=== PATIENT | male | born 1950 | race Caucasian/White ===

== ENCOUNTER 2019-09-27 13:16 | Outpatient (CLI) | payer MEDICARE ==
[2019-09-27] MEDS ORDERED: Iopamidol-370 76% 500 ML 1 ML ONE (13:51)
[2019-09-27 14:26] LABS: Estimated GFR-MDRD - POC Greater than 90
--- NOTE | 2019-09-27 17:55 | CT ---
CTA OF THE AORTA AND BILATERAL LOWER EXTREMITY RUNOFF WITH IV CONTRAST AND 3D POSTPROCESSIN09/27/19 HISTORY: Peripheral vascular disease. FINDINGS: Extensive atherosclerotic plaque is seen in the arterial systems of the aorta and the lower section o f the arteries. No aneurysmal dilatation of the abdominal aorta is seen. There is mild stenosis at th e origin of the left renal artery and moderate stenosis at the origin of the right renal artery. Ther e is good flow in the celiac access. There is moderate stenosis of the origin of the SMA. High grade stenosis is seen in the common iliac arteries bilaterally. There is high grade stenosis in the dental intern al iliac arteries. There is high grade stenosis in the external iliac arteries on both sides. There is also long segment occlusion of the superficial femoral arteries on both sides with reconstit ution flow in the distal popliteal arteries through branches of the deep femoral arteries. There is e xtensive atherosclerotic narrowing in the vessels of the legs with triple phase flow demonstrated to the ankles and probably feet on either side. There is severe stenosis in the left common femoral artery. No calcified gallstones are seen. No free air, free fluid or lymphadenopathy is noted in the abdomen or pelvis. There are bilateral renal cysts. There is irregularity of the structures of the liver mcintosh spicious for cirrhosis. No hypervascular liver mass is seen. The pancreas, adrenal glands and spleen are normal. There is a small at containing umbilical hernia. There is colonic diverticulosis. There are degenerative changes in the spine. IMPRESSION: Extensive atherosclerotic disease with multilevel stenosis in the peripheral arteries of the lower ex tremities including long segment occlusion of the superficial femoral arteries bilaterally. POS: ILIA
== END 2019-09-27 13:17 | disposition home or self-care (01) ==
LOC: BICCT 13:16
PROVIDERS: ATTEND Thoracic Surgery (Cardiothoracic Vascular Surgery)
DX: I70.203 Unspecified atherosclerosis of native arteries of extremities, bilateral legs (principal); I77.1 Stricture of artery
CPT/HCPCS: 75635; 82565; Q9967

== ENCOUNTER 2019-10-01 13:30 | Inpatient (IN) | payer MEDICARE ==
[2019-10-02] MEDS ORDERED: Heparin 5,000 UNITS/ML VIAL ONE (06:28)
[2019-10-02] MEDS ORDERED: Protamine Sulfate 50 MG/5 ML VIAL ONE (06:28)
[2019-10-02] MEDS ORDERED: Fentanyl 100 MCG/2 ML VIAL ONE ×2 (06:29→12:26)
[2019-10-02] MEDS ORDERED: Midazolam HCl 2 mg/2 ml Vial ONE (06:29)
[2019-10-02] MEDS ORDERED: Ondansetron HCl/PF 4 MG/2 ML Vial IVP PRN (08:54)
[2019-10-02] MEDS ORDERED: Ondansetron PF 4 MG/2 ML Vial ONE (10:17)
[2019-10-02] MEDS ORDERED: EPHEDRINE 25 MG/5 ML SYRINGE ONE (10:17)
[2019-10-02] MEDS ORDERED: Lidocaine 1% PF 5 ML VIAL ONE (10:17)
[2019-10-02] MEDS ORDERED: PHENYLEPHRINE-NS 100 MCG/ML 10 ML SYRINGE ONE (10:17)
[2019-10-02] MEDS ORDERED: PROPOFOL 200 MG/20 ML VIAL ONE (10:17)
[2019-10-02] MEDS ORDERED: Dexamethasone 20 MG/5 ML VIAL ONE (10:17)
[2019-10-02] MEDS ORDERED: Ketorolac Tromethamine 30 MG/ML VIAL ONE (10:17)
[2019-10-02] MEDS ORDERED: Rocuronium Bromide 10 MG/ML (10ML VIAL) ONE (10:17)
[2019-10-02] MEDS ORDERED: Glycopyrrolate 0.2 MG/ML 5 ML SYRINGE ONE (10:17)
[2019-10-02] MEDS ORDERED: Ondansetron PF 4 MG/2 ML Vial IVP PRN (12:36)
[2019-10-02] MEDS: Fentanyl 100 MCG/2 ML VIAL SLOW IVP PRN ×2 (13:27→21:36)
[2019-10-02] MEDS: Lactated Ringer's 1,000 ML IV SCH (13:29)
[2019-10-02] MEDS: CEFAZOLIN 2 GM in Premix Bag 1 BAG IVPB SCH ×2 (13:31→21:38)
[2019-10-02 13:41] VITALS: BMI 29.1
[2019-10-02] MEDS: HYDROcodone/Acetaminophen 5/325 mg Tablet PO PRN ×3 (13:43→22:35)
[2019-10-02] MEDS ORDERED: FLU VACC TS2019-20(65YR UP)/PF 180 MCG/0.5 ML SYRINGE IM ONE (13:45)
[2019-10-03] MEDS: Lactated Ringer's 1,000 ML IV SCH (00:39)
[2019-10-03] MEDS: Fentanyl 100 MCG/2 ML VIAL SLOW IVP PRN ×2 (03:01→15:11)
[2019-10-03 03:50] LABS: #Lymphocytes 1.2 thou/uL (1.20-3.40); #Monocytes 0.7 thou/uL (0.11-0.59); #Neutrophils 5.3 thou/uL (1.40-6.50); %Basophils 0.6 % (0.0-1.0); %Eosinophils 0.1 % (0.0-10.0); %Lymphocytes 16.8 % (21.0-51.0); %Monocytes 9.6 % (0.0-10.0); %Neutrophils 72.9 % (42.0-75.0); Hemoglobin 9.2 g/dL (14.0-18.0); Mean Corpuscular HGB CONC 35.2 g/dL (32.0-36.0); Mean Corpuscular Hemoglobin 33.7 pg (27.0-31.0); Mean Corpuscular Volume 95.9 fL (78.0-98.0); Mean Platelet Volume 7.6 fL (7.4-10.4); Platelet Count 182 thou/uL (130-400); RBC Distribution Width 11.2 % (11.5-14.5); Red Blood Cell (RBC) Count 2.72 mill/uL (4.70-6.10); White Blood Cell (WBC) Count 7.3 thou/uL (4.8-10.8)
[2019-10-03] MEDS: HYDROcodone/Acetaminophen 5/325 mg Tablet PO PRN ×3 (04:00→13:51)
[2019-10-03 04:15] LABS: Anion Gap 14 mmol/L (10-20); BUN (Urea Nitrogen) 11 mg/dL (8.4-25.7); Calc. Creatinine Clearance 107 mL/min (70-130); Calcium 9.5 mg/dL (7.8-10.44); Carbon Dioxide 23 mmol/L (23-31); Chloride 102 mmol/L (98-107); Estimated GFR-MDRD 88; Glucose 100 mg/dL (80-115); Potassium 5.1 mmol/L (3.5-5.1); Sodium 134 mmol/L (136-145)
[2019-10-03] MEDS: Levothyroxine Sodium 100 MCG TAB PO SCH (05:42)
[2019-10-03] MEDS: CEFAZOLIN 2 GM in Premix Bag 1 BAG IVPB SCH (05:42)
[2019-10-03] MEDS: Aspirin Chewable 81 MG TAB PO SCH (07:54)
[2019-10-03] MEDS ORDERED: NIFEdipine XL 60 MG TAB PO SCH (09:00)
[2019-10-03] MEDS ORDERED: Losartan/Hydrochlorothiazide 100 mg/25 mg Tablet PO SCH (09:00)
--- NOTE | 2019-10-03 13:10 | OP ---
DATE OF PROCEDURE: 10/02/2019 PREOPERATIVE DIAGNOSIS: Peripheral vascular disease. PROCEDURES PERFORMED: 1. Aortogram. 2. Bilateral iliofemoral runoff with bilateral common iliac artery stents, right 8 x 37 Express, left 7 x 37 Express. 3. Left common superficial and profunda endarterectomy. ANESTHESIA: General. ESTIMATED BLOOD LOSS: One hundred fifty. FLUORO: 8 minutes 37 seconds. CONTRAST: 60 mL. DESCRIPTION OF PROCEDURE: After adequate anesthesia had been obtained, the patient was prepped and draped. An incision was made in the left groin from the inguinal ligament distally to about 3 cm onto the superficial femoral artery. Two profunda branches exiting posteriorly and posterolaterally were mobilized as was the external iliac artery just proximal to the lateral circumflex femoral vessel. The patient was heparinized and a right common femoral artery puncture into the common femoral artery was performed. A wire was passed, however, would not advance past the mid external iliac artery. A 5-[place]izen [place] dilator and sheath were placed, following which an angled [place] catheter was used to direct the wire into the aorta. Angiography was obtained, demonstrating some haziness in the external iliac artery on the right as well as calcification of the aortoiliac segments and a stenosis in the left common iliac artery. The needle and wire were then inserted into the left common femoral artery with open technique and a wire was advanced once again using the [place] catheter to allow the wire to advance into the aorta. Following angiography here, a 7-[place] sheath was placed on the right and exchanged for a 7-[place] sheath on the left. Attempt to pass the left iliac stent was not successful and the dilator was loaded onto the sheath, which was then advanced into the distal aorta. The dilator was removed and the 7 x 37 stent was then advanced into the sheath and then the sheath withdrawn, leaving the stent to be deployed in the proximal iliac artery. On the right, kissing 8 x 37 stent was then placed and they were insufflated simultaneously. Following this, angiography from both groin showed a good result. The area of calcification in the mid right external iliac artery was again noted; however, flow was brisk and attention was then turned to removal of the wires. Clamps were placed in the left femoral vessels and arteriotomy performed with endarterectomy, extending from the inguinal ligament down onto the superficial femoral artery. Orifice of both profunda femoral arteries was cleaned out. Bovine patch was then used to close the arteriotomy, following which appropriate flushing flow was restored and heparin reversed with protamine. After obtaining good hemostasis, the wound was closed in layers and the right groin sheath was then removed and pressure was held for 15 minutes. The patient tolerated the procedure and is to be taken to the recovery room in guarded condition. Job ID: [id number]
[2019-10-03] MEDS: Acetaminophen 325 MG TAB PO PRN ×2 (18:13→21:46)
[2019-10-04] MEDS: Acetaminophen 325 MG TAB PO PRN ×2 (01:40→05:27)
[2019-10-04] MEDS: Levothyroxine Sodium 100 MCG TAB PO SCH (05:25)
[2019-10-04 05:39] LABS: #Basophils 0.1 thou/uL (0.0-0.2); #Eosinphils 0.2 thou/uL (0.0-0.7); #Monocytes 0.6 thou/uL (0.11-0.59); #Neutrophils 4.2 thou/uL (1.40-6.50); %Basophils 0.7 % (0.0-1.0); %Eosinophils 2.3 % (0.0-10.0); %Lymphocytes 27.9 % (21.0-51.0); %Monocytes 8.5 % (0.0-10.0); %Neutrophils 60.6 % (42.0-75.0); Hemoglobin 9.2 g/dL (14.0-18.0); Mean Corpuscular HGB CONC 35.2 g/dL (32.0-36.0); Mean Corpuscular Hemoglobin 33.7 pg (27.0-31.0); Mean Corpuscular Volume 95.8 fL (78.0-98.0); Platelet Count 201 thou/uL (130-400); RBC Distribution Width 11.3 % (11.5-14.5); Red Blood Cell (RBC) Count 2.71 mill/uL (4.70-6.10)
[2019-10-04] MEDS ORDERED: Protamine Sulfate 50 MG/5 ML VIAL ONE (06:32)
[2019-10-04] MEDS ORDERED: Heparin 5,000 UNITS/ML VIAL ONE (06:32)
[2019-10-04] MEDS ORDERED: Fentanyl 100 MCG/2 ML VIAL ONE ×3 (06:56→10:39)
[2019-10-04] MEDS ORDERED: Midazolam HCl 2 mg/2 ml Vial ONE (06:58)
[2019-10-04] MEDS: Aspirin Chewable 81 MG TAB PO SCH (08:25)
[2019-10-04] MEDS ORDERED: Rocuronium Bromide 10 MG/ML (10ML VIAL) ONE (10:07)
[2019-10-04] MEDS ORDERED: PROPOFOL 200 MG/20 ML VIAL ONE (10:07)
[2019-10-04] MEDS ORDERED: Glycopyrrolate 0.2 MG/ML 5 ML SYRINGE ONE (10:07)
[2019-10-04] MEDS ORDERED: Lidocaine 1% PF 5 ML VIAL ONE (10:07)
[2019-10-04] MEDS ORDERED: Ondansetron PF 4 MG/2 ML Vial ONE (10:07)
[2019-10-04] MEDS ORDERED: PHENYLEPHRINE-NS 100 MCG/ML 10 ML SYRINGE ONE (10:07)
[2019-10-04] MEDS ORDERED: Dexamethasone 20 MG/5 ML VIAL ONE (10:07)
[2019-10-04] MEDS ORDERED: Polyethylene Glycol 3350 17 GM Packet PO SCH (11:15)
[2019-10-04] MEDS: HYDROcodone/Acetaminophen 5/325 mg Tablet PO PRN ×3 (14:06→21:55)
[2019-10-05] MEDS: HYDROcodone/Acetaminophen 5/325 mg Tablet PO PRN ×5 (02:06→19:59)
[2019-10-05] MEDS: Levothyroxine Sodium 100 MCG TAB PO SCH (05:44)
[2019-10-05] MEDS: Aspirin Chewable 81 MG TAB PO SCH (08:42)
[2019-10-05] MEDS: Enoxaparin Sodium 40 MG/0.4 ML SYRINGE SC SCH (08:43)
[2019-10-05] MEDS: Polyethylene Glycol 3350 17 GM Packet PO SCH (08:43)
[2019-10-06] MEDS: HYDROcodone/Acetaminophen 5/325 mg Tablet PO PRN ×6 (00:09→21:40)
[2019-10-06] MEDS: Levothyroxine Sodium 100 MCG TAB PO SCH (05:33)
[2019-10-06] MEDS ORDERED: Bisacodyl 5 MG TAB PO PRN (07:48)
[2019-10-06] MEDS ORDERED: Bisacodyl 10 MG SUPP PR PRN (07:49)
[2019-10-06] MEDS: Enoxaparin Sodium 40 MG/0.4 ML SYRINGE SC SCH (08:24)
[2019-10-06] MEDS: Polyethylene Glycol 3350 17 GM Packet PO SCH (08:24)
[2019-10-06] MEDS: Aspirin Chewable 81 MG TAB PO SCH (08:24)
[2019-10-07] MEDS: HYDROcodone/Acetaminophen 5/325 mg Tablet PO PRN ×5 (02:10→19:59)
[2019-10-07] MEDS: Levothyroxine Sodium 100 MCG TAB PO SCH (06:15)
[2019-10-07] MEDS: Enoxaparin Sodium 40 MG/0.4 ML SYRINGE SC SCH (08:50)
[2019-10-07] MEDS: Aspirin Chewable 81 MG TAB PO SCH (08:50)
[2019-10-07] MEDS: Polyethylene Glycol 3350 17 GM Packet PO SCH (08:51)
--- NOTE | 2019-10-07 13:43 | OP ---
DATE OF PROCEDURE: 10/04/2019 PREOPERATIVE DIAGNOSIS: Gangrene, left foot. PROCEDURE PERFORMED: Left femoral to distal popliteal artery bypass with non-reversed saphenous vein. ANESTHESIA: General. TRANSFUSION: One packed red cells. ESTIMATED BLOOD LOSS: 150. DESCRIPTION OF PROCEDURE: After adequate anesthesia had been obtained, the patient was prepped and draped. The leg had been marked with ultrasound and an incision was made medial and distal to the knee, exposing the saphenous vein, which was mobilized. The fascia was then entered and the distal popliteal artery was palpated and was soft, although the distal-most popliteal artery was calcified. The saphenous vein was rather small and an endovascular assisted with open harvest was performed, following which the previously made left groin incision was reopened. The saphenous vein was then mobilized in the groin and removed, following which branches were tied. The valvulotome was then passed, disrupting valves as the vein was too small distally to reverse. Following this, the patient was heparinized. Clamps were applied just distal to the profunda takeoff on the superficial femoral artery and the bovine patch was opened here. Saphenous vein was then anastomosed to this incision and then brought through the tunnel behind the knee, subcutaneously in the thigh, and then behind the knee distally and anastomosed to the distal popliteal artery. There was good Doppler signal distally in the popliteal artery. Following this, heparin was not reversed. The wounds were irrigated and closed in layers and the patient is to be taken to the recovery room in guarded condition. Job ID: [id number]
[2019-10-08] MEDS: HYDROcodone/Acetaminophen 5/325 mg Tablet PO PRN ×4 (00:04→12:54)
[2019-10-08] MEDS: Levothyroxine Sodium 100 MCG TAB PO SCH (06:14)
[2019-10-08 08:12] VITALS: TEMP 98.2
[2019-10-08] MEDS: Polyethylene Glycol 3350 17 GM Packet PO SCH (08:49)
[2019-10-08] MEDS: Aspirin Chewable 81 MG TAB PO SCH (08:50)
[2019-10-08] MEDS: Enoxaparin Sodium 40 MG/0.4 ML SYRINGE SC SCH (08:50)
[2019-10-08 12:18] VITALS: BP 130/72
== END 2019-10-08 13:55 | disposition home or self-care (01) | DRG 271 ==
LOC: SURG A 10-02 05:33 → CCU 10-02 13:27 → SURG A 10-03 08:48
PROVIDERS: ADMIT Thoracic Surgery (Cardiothoracic Vascular Surgery); ATTEND Thoracic Surgery (Cardiothoracic Vascular Surgery)
PROC: 047D3DZ Dilation of Left Common Iliac Artery with Intraluminal Device, Percutaneous Approach (ICD-10-PCS; principal; 2019-10-02)
PROC: 04CL3ZZ Extirpation of Matter from Left Femoral Artery, Percutaneous Approach (ICD-10-PCS; 2019-10-02)
PROC: 047C3DZ Dilation of Right Common Iliac Artery with Intraluminal Device, Percutaneous Approach (ICD-10-PCS; 2019-10-02)
PROC: 041L09L Bypass Left Femoral Artery to Popliteal Artery with Autologous Venous Tissue, Open Approach (ICD-10-PCS; 2019-10-04)
PROC: 06BQ0ZZ Excision of Left Saphenous Vein, Open Approach (ICD-10-PCS; 2019-10-04)
DX: I70.25 Atherosclerosis of native arteries of other extremities with ulceration (principal); I70.263 Atherosclerosis of native arteries of extremities with gangrene, bilateral legs; I65.29 Occlusion and stenosis of unspecified carotid artery; I10 Essential (primary) hypertension; E78.5 Hyperlipidemia, unspecified; E03.9 Hypothyroidism, unspecified; K42.9 Umbilical hernia without obstruction or gangrene; Z87.891 Personal history of nicotine dependence
CPT/HCPCS: 36415; 36430; 76000; 80048; 85025; 85027; 86850; 86900; 86901; C1769; C1874; C1876; J0690; J1100; J1642; J1644; J1650; J1885; J2001; J2250; J2405; J2704; J2720; J3010; P9016; P9045

== ENCOUNTER 2020-01-31 10:30 | Outpatient (CLI) | payer MEDICARE ==
--- NOTE | 2020-01-31 11:50 | CT ---
EXAM: CT angiogram neck with IV contrast and 3-D reconstruction PROVIDED CLINICAL HISTORY: Carotid stenosis. Abnormal carotid ultrasound examination. COMPARISON: None FINDINGS: Vascular calcifications are seen in the aortic arch. There is a normal arrangement of the great vesse ls at the aortic arch. There are dense vascular calcifications seen at the origin and involving proximal left subclavian artery. The lumen is obscured by these vascular calcifications. Dense vascul ar calcifications are also seen involving the proximal right subclavian artery, and the lumen of the proximal right carotid arteries unable to be evaluated.. The innominate artery is patent. The origins of each vertebral artery are obscured due to dense vascular calcic lesions, the vertebral arteries are otherwise patent and codominant. Origin of the right common carotid artery is partially obscured due to dense vascular calcifications with at least mild narrowing present. There are dense vascular calcifications seen in the right common carotid artery distally which limits evaluation of the lumen and results in at least mild narr owing. There are dense vascular calcifications limiting evaluation of the lumen at the origin of the right internal carotid artery with narrowing seen in this region. The degree of narrowing approac hes at least 50% at the origin; however, vascular calcifications also obscure the lumen of the more proximal right internal carotid artery, and there may actually be greater degree of stenosis involvin g the proximal right internal carotid artery. Mild degrees of narrowing and atherosclerotic plaque are seen involving the distal common carotid art carmen. There is a dense calcification seen involving the most proximal left internal carotid artery, and the left internal carotid artery occludes at this level. Emphysematous changes are seen in the visualized upper lung zones. Degenerative changes are seen in the cervical spine, and there is straightening of the normal cervica l lordotic curvature which may related to positioning or muscle spasm. This also mild right convex curvature of the cervical spine. IMPRESSION: 1. Dense vascular calcifications involving the arterial vessels of the neck which does obscure portio ns of the lumen of several arterial vessels including the origin of the left subclavian artery where there is suggestion of at least moderate narrowing. The lumen of the right subclavian artery an d origin of the right common coronary arteries are also obscured due to to dense calcifications. Obscuration of the lumen of the proximal right internal carotid artery is noted; however, there is at least a moderate stenosis present with degree of narrowing approaching 50% involving the proximal right internal carotid artery. 2. Occlusion of the left internal carotid artery proximally. 3. Codominant bilateral vertebral arteries. The origins of each vertebral artery are not well assesse d especially on the right due to dense vascular calcifications.
[2020-01-31] MEDS ORDERED: Iopamidol-370 76% 500 ML 1 ML ONE (14:31)
== END 2020-01-31 10:31 | disposition home or self-care (01) ==
LOC: BICCT 10:30
PROVIDERS: ATTEND Thoracic Surgery (Cardiothoracic Vascular Surgery)
DX: I65.23 Occlusion and stenosis of bilateral carotid arteries (principal); I70.8 Atherosclerosis of other arteries
CPT/HCPCS: 70498; 82565; Q9967

== ENCOUNTER 2020-03-24 10:01 | Day surgery (SDC) | payer MEDICARE ==
[2020-03-23 10:08] VITALS: BMI 27.2
[2020-03-24] MEDS ORDERED: Iopamidol 370 76% 50 ML VIAL FS ONE (11:36)
[2020-03-24] MEDS ORDERED: Lidocaine 1% (PF) 30 ML VIAL ONE (11:55)
[2020-03-24] MEDS ORDERED: Fentanyl 100 MCG/2 ML VIAL ONE ×2 (12:20→14:59)
[2020-03-24] MEDS ORDERED: Heparin 10,000 UNITS/ 10 ML VIAL ONE (13:38)
[2020-03-24] MEDS ORDERED: Protamine Sulfate 50 MG/5 ML VIAL ONE (13:51)
--- NOTE | 2020-03-25 13:35 | OP ---
DATE OF PROCEDURE: 03/24/2020 PREOPERATIVE DIAGNOSES: Bilateral lower extremity ischemic ulcers, status post left saphenous vein bypass, femoral to infrageniculate popliteal artery. PROCEDURE PERFORMED: Bilateral femoral artery punctures, abdominal aortogram, GASTROENTEROLOGY PHYSICIAN of right external iliac artery using a 4 x 40 balloon. ANESTHESIA: 1% lidocaine with IV sedation. CONTRAST: 58 mL. FLUOROSCOPY: 26.3 minutes. DESCRIPTION OF PROCEDURE: After adequate prepping and draping, the right groin was punctured with ultrasound guidance into the distal common femoral artery, knowing that there was a very distal external iliac artery stenosis. A 5-Polish dilator and sheath were obtained, and retrograde angiography was obtained of the iliac system demonstrating about a 90% distal right external iliac stenosis. Runoff of the leg demonstrated an occluded SFA with reconstitution of a fairly normal-appearing popliteal artery [id number], calcified above the knee and then 3-vessel runoff, although the vessels did not all go to the ankle level. Following heparinization, a 4 x 40 balloon was placed through a 6-Polish Marker sheath, which was exchanged over for the 5-Polish sheath and the external iliac artery was angioplastied and the result was nice with no residual stenosis. Following this, a Contra catheter was used to pass a Bentson and then an angled Glidewire across the iliac bifurcation into the left profunda femoral artery. An angled glide catheter was then advanced and runoff of the left leg obtained, demonstrating a significant proximal ostial stenosis of the saphenous vein graft. The saphenous vein graft otherwise was normal in appearance. There may have been some mild narrowing distally at the distal anastomosis and then there was only single-vessel runoff with no other tibial vessels visualizing late. Single-vessel runoff did not go all the way to the ankle. Following this, multiple attempts to pass a 6-Polish Destination sheath over the bifurcation were not successful using Magic Torque wire, Wholey wire, Glidewire. The patient had had previous bilateral common iliac artery stents and whether this contributed to the difficulty was not clear. A retrograde left femoral stick was then performed with a 4-Polish micropuncture. However, I was unable to pass the dilator and sheath simultaneously, although the dilator would pass. Finally, the dilator and sheath passed and a 0.035 wire was placed into the profunda. Attempts to place a 5-Polish dilator and the sheath were unsuccessful despite multiple attempts due to scarring in the left groin. For this reason, the plan to treat the proximal saphenous vein stenosis was abandoned and the sheaths were removed after protamine administration. Job ID: [id number]
== END 2020-03-24 20:10 | disposition home or self-care (01) ==
LOC: CCL 10:01
PROVIDERS: ATTEND Thoracic Surgery (Cardiothoracic Vascular Surgery)
PROC: 047H3ZZ Dilation of Right External Iliac Artery, Percutaneous Approach (ICD-10-PCS; principal; 2020-03-24)
DX: I70.263 Atherosclerosis of native arteries of extremities with gangrene, bilateral legs (principal); L97.919 Non-pressure chronic ulcer of unspecified part of right lower leg with unspecified severity; L97.929 Non-pressure chronic ulcer of unspecified part of left lower leg with unspecified severity; T82.858A Stenosis of other vascular prosthetic devices, implants and grafts, initial encounter; I10 Essential (primary) hypertension; E78.5 Hyperlipidemia, unspecified; Z79.82 Long term (current) use of aspirin; Z79.899 Other long term (current) drug therapy; Z87.891 Personal history of nicotine dependence
CPT/HCPCS: 36415; 36430; 37220; 76942; 85347; 86850; 86900; 86901; J1644; J2001; J2720; J3010; P9016; Q9967

== ENCOUNTER 2020-04-28 07:28 | Outpatient (CLI) | payer MEDICARE, OTHER ==
[2020-04-28 16:20] LABS: Hemoglobin 9.9 g/dL (14.0-18.0); Mean Corpuscular HGB CONC 34.1 g/dL (32.0-36.0); Mean Corpuscular Volume 85.1 fL (78.0-98.0); Mean Platelet Volume 8.8 fL (7.4-10.4); Platelet Count 123 thou/uL (130-400); RBC Distribution Width 17.3 % (11.5-14.5); Red Blood Cell (RBC) Count 3.42 mill/uL (4.70-6.10); White Blood Cell (WBC) Count 4.6 thou/uL (4.8-10.8)
[2020-04-28 16:36] LABS: Anion Gap 14 mmol/L (10-20); BUN (Urea Nitrogen) 11 mg/dL (8.4-25.7); Calc. Creatinine Clearance 0 mL/min (70-130); Calcium 9.1 mg/dL (7.8-10.44); Carbon Dioxide 23 mmol/L (23-31); Chloride 93 mmol/L (98-107); Estimated GFR-MDRD 77; Glucose 92 mg/dL (80-115); Potassium 4.6 mmol/L (3.5-5.1); Sodium 125 mmol/L (136-145)
[2020-04-29 11:54] LABS: SARS-CoV-2 MS2 Positive; SARS-CoV-2 N Gene Negative; SARS-CoV-2 S Gene Negative; SARS-CoV-2 by NAA Not Detected (NotDetected); SARS-CoV-2 orf1ab Negative
== END 2020-04-28 07:29 | disposition home or self-care (01) ==
LOC: LABBT 07:28
PROVIDERS: ATTEND Thoracic Surgery (Cardiothoracic Vascular Surgery)
DX: Z01.812 Encounter for preprocedural laboratory examination (principal); I73.9 Peripheral vascular disease, unspecified; Z20.828 Contact with and (suspected) exposure to other viral communicable diseases
CPT/HCPCS: 80048; 85027; 86850; 86900; 86901; 86920; U0003; 87635

== ENCOUNTER 2020-04-28 13:00 | Inpatient (IN) | payer MEDICARE, OTHER ==
[2020-05-01] MEDS ORDERED: Protamine Sulfate 50 MG/5 ML VIAL ONE (10:21)
[2020-05-01] MEDS ORDERED: Heparin 5,000 UNITS/ML VIAL ONE (10:21)
[2020-05-01] MEDS ORDERED: PROPOFOL 200 MG/20 ML VIAL ONE (10:35)
[2020-05-01] MEDS ORDERED: Rocuronium Bromide 10 MG/ML (10ML VIAL) ONE (10:35)
[2020-05-01] MEDS ORDERED: Ondansetron PF 4 MG/2 ML Vial ONE (10:35)
[2020-05-01] MEDS ORDERED: Dexamethasone 20 MG/5 ML VIAL ONE (10:35)
[2020-05-01] MEDS ORDERED: Fentanyl 100 MCG/2 ML VIAL ONE (12:32)
[2020-05-01] MEDS ORDERED: Midazolam HCl 2 mg/2 ml Vial ONE (12:32)
[2020-05-01] MEDS ORDERED: SUGAMMADEX SODIUM 200 MG/2 ML VIAL ONE (15:02)
[2020-05-01] MEDS ORDERED: Clopidogrel Bisulfate 75 MG TAB PO SCH (15:16)
[2020-05-01] MEDS ORDERED: Fentanyl 100 MCG/2 ML VIAL SLOW IVP PRN (15:16)
[2020-05-01] MEDS ORDERED: Sodium Chloride 0.9% 1,000 ML IV SCH (15:16)
[2020-05-01] MEDS ORDERED: Ondansetron PF 4 MG/2 ML Vial IVP PRN (15:16)
[2020-05-01] MEDS: traMADol HCl 50 MG TAB PO PRN ×2 (18:34→23:27)
[2020-05-01] MEDS: CEFAZOLIN 2 GM in Premix Bag 1 BAG IVPB SCH (18:34)
[2020-05-01 20:45] VITALS: BMI 27.2
[2020-05-01] MEDS: Acetaminophen 325 MG TAB PO PRN (23:27)
[2020-05-02] MEDS: CEFAZOLIN 2 GM in Premix Bag 1 BAG IVPB SCH ×2 (02:14→08:54)
[2020-05-02] MEDS ORDERED: Levothyroxine Sodium 100 MCG TAB PO SCH (06:00)
[2020-05-02] MEDS: Acetaminophen 325 MG TAB PO PRN (06:11)
[2020-05-02 07:11] VITALS: BP 150/90; TEMP 97.7
[2020-05-02] MEDS ORDERED: Losartan/Hydrochlorothiazide 100 mg/25 mg Tablet PO SCH (09:00)
[2020-05-02] MEDS ORDERED: Folic Acid 1 MG TAB PO SCH (09:00)
[2020-05-02] MEDS ORDERED: Clopidogrel Bisulfate 75 MG TAB PO SCH (09:00)
[2020-05-02] MEDS ORDERED: Thiamine 100 MG TAB PO SCH (09:00)
[2020-05-02] MEDS ORDERED: Aspirin Chewable 81 MG TAB PO SCH (09:00)
--- NOTE | 2020-05-03 08:55 | EKG ---
Test Reason : PREOP Blood Pressure : / mmHG Vent. Rate : 092 BPM Atrial Rate : 092 BPM P-R Int : 160 ms QRS Dur : 148 ms QT Int : 382 ms P-R-T Axes : 057 050 031 degrees QTc Int : 472 ms Normal sinus rhythm Right bundle branch block Abnormal ECG No previous ECGs available Confirmed by DR. Yolie HERRERA ([id number]) on 05/03/2020 8:55:36 AM Referred By: TANIA Confirmed By:DR. Yolie HERRERA
--- NOTE | 2020-05-03 09:22 | OP ---
DATE OF PROCEDURE: 05/01/2020 PREOPERATIVE DIAGNOSIS: Stenosis, proximal and distal anastomosis, left femoral-popliteal. PROCEDURES PERFORMED: Vein patch angioplasty, proximal anastomosis, left femoral-popliteal and then drug-eluting stent to the distal anastomosis with a 3.5 x 12 mm stent. ANESTHESIA: General. ESTIMATED BLOOD LOSS: Less than 150. CONTRAST: 35. FLUORO: 5 minutes and 50 seconds. DESCRIPTION OF PROCEDURE: After prepping and draping, the cephalic vein was harvested for about 2 cm from the left upper arm and then the left groin incision was made in the distal aspect of the previous scar, exposing the saphenous vein as well as the distal aspect of the artery that it was anastomosed to which happened to be the superficial femoral artery. Following heparinization, clamps were applied. Arteriotomy performed through the anastomosis of the vein with the superficial femoral artery and a tight stricture was seen. This was debrided, cutting away scar tissue. Following this, a 5-Mal[place] dilator and sheath were placed down the vein graft over a wire. Angiography obtained and a Luge wire then advanced into the anterior tibial artery. Following this, a 2.5 and then a 3 mm Monorail balloon were used to inflate the distal anastomosis and the stenosis remained. A 3.5 x 12 drug-eluting stent was then deployed and result was good. The wire and sheath were removed, and the cephalic vein was used as an onlay patch angioplasty proximally with a running 6-0 Prolene suture. Prior to completing the suture line, forward flushing and back flushing were obtained and heparin saline flushed distally and then flow restored down the vein graft. The heparin was partially reversed with protamine and the wounds were closed in layers. Job ID: [id number]
--- NOTE | 2020-05-04 04:27 | PQF ---
CLINICAL DOCUMENTATION CLARIFICATION FORM: Dear : Curt Hill Date / Time: 05/04/20425 Please exercise your independent, professional judgment in responding to the clarification form. Clinical indicators are provided on the bottom of this form for your review Please check appropriate box(es) to clarify if the following diagnosis has been ruled in our ruled out: Gangrene [ ] Ruled in diagnosis [ ] Continue to treat [ ] Resolved [ ] Ruled out diagnosis [ ] Improving [ ] Cannot rule out diagnosis [ ] Other diagnosis [ y ] Unable to determine Physician Signature: Date/Time: For continuity of documentation, please document condition throughout progress notes and discharge summary. Thank You. To be completed by CDI/Coding staff for physician review: Present Clinical Indicators - Signs / Symptoms / Labs Results and Location in Medical Record [X] BP 118/77, Pulse 98, Resp 16, Temp 97.8 Vital signs 05/01 [X] Aterosclerosis of chilkat artery of both lower extremities with gangrene Scanned H&P [X] No more rest pain right foot and small sore almost gone on 4th toe, left great toe, 4th and 5th toe clean and still with open wound below knee Scanned H&P [X] Stenosis, proximal and distla anastomosis, left fem-pop Operative report Dr Hill 05/01 Present Risk Factors Results and Location in Medical Record [X] 69year old Male Scanned H&P [X] PVD Scanned H&P [X] HTN Scanned H&P [X] HLD Scanned H&P [X] Former Smoker Anesthesia 05/01 Present Treatments Results and Location in Medical Record [X] IV Cefazolin 2 gm SEP 30 [X] IV Fentanyl 100 mcg SEP 30 [X] IVF NS 1L SEP 30 [X] Ultram 100 mg oral SEP 30 [X] Vein patch angioplasty, proximal anastomosis, left fem-pop and then drug- eluting stent to the distal anastomosis Operative report Dr Hill 05/01 CDS/Assistant Shift Supervisor Signature: Macie Val Vasquez Phone #: [phone] Date/Time: 05/04/2020 0421 This is a permanent part of the Medical Record [facility]
== END 2020-05-02 12:05 | disposition home or self-care (01) | DRG 253 ==
LOC: SURG A 05-01 09:24
PROVIDERS: ADMIT Thoracic Surgery (Cardiothoracic Vascular Surgery); ATTEND Thoracic Surgery (Cardiothoracic Vascular Surgery)
PROC: 04UL07Z Supplement Left Femoral Artery with Autologous Tissue Substitute, Open Approach (ICD-10-PCS; principal; 2020-05-01)
PROC: 05BF0ZZ Excision of Left Cephalic Vein, Open Approach (ICD-10-PCS; 2020-05-01)
PROC: 04HL3DZ Insertion of Intraluminal Device into Left Femoral Artery, Percutaneous Approach (ICD-10-PCS; 2020-05-01)
DX: T82.858A Stenosis of other vascular prosthetic devices, implants and grafts, initial encounter (principal); I70.263 Atherosclerosis of native arteries of extremities with gangrene, bilateral legs; I10 Essential (primary) hypertension; E78.5 Hyperlipidemia, unspecified; Y83.2 Surgical operation with anastomosis, bypass or graft as the cause of abnormal reaction of the patient, or of later complication, without mention of misadventure at the time of the procedure; Z79.899 Other long term (current) drug therapy; Z79.1 Long term (current) use of non-steroidal anti-inflammatories (NSAID); Z79.890 Hormone replacement therapy; Z87.891 Personal history of nicotine dependence
CPT/HCPCS: 76000; 80048; 85027; 86850; 86900; 86901; 87635; 93005; 93010; C1874; J0690; J1100; J1644; J2250; J2405; J2704; J2720; J3010; J7620; U0003

== ENCOUNTER 2020-08-04 13:52 | Outpatient (CLI) | payer MEDICARE ==
--- NOTE | 2020-08-04 14:09 | RAD ---
EXAM: 3 views of the cervical spine HISTORY: Neck pain COMPARISON: None FINDINGS: AP, lateral, and open mouth odontoid views of the cervical spine shows moderate degenerativ e to severe changes of the cervical spine. This is greatest at C5/6 and C6/7. There is slight wedging of the C5 vertebral body secondary to degenerative change. There is no evidence of acute frac ture or subluxation. No prevertebral soft tissue swelling is seen. Calcifications are seen in the carotid arteries. IMPRESSION: Moderate to severe degenerative changes of the cervical spine without acute osseous abnor mality.
== END 2020-08-04 13:53 | disposition home or self-care (01) ==
LOC: RAD-FRANK 13:52
PROVIDERS: ATTEND Nurse Practitioner Family
DX: M54.2 Cervicalgia (principal); M47.812 Spondylosis without myelopathy or radiculopathy, cervical region
CPT/HCPCS: 72040